=== PATIENT | female | born 1960 | race Asian ===

== ENCOUNTER 2017-03-20 08:41 | Day surgery (SDC) | payer SELFPAY ==
[~2017-03-20] VITALS: Ht 162.6 cm; Wt 72.6 kg
[2017-03-20] VITALS (10 sets, daily range): BP systolic 107–137; BP diastolic 63–87
[~2017-03-20 08:41] MED LIST: CALCIUM600 M1 PO; HYDROCHLOROTH12.5 M2 ORAL; MECLIZINE HCL25 MG ORAL; VITAMIN D1000 UNI1 ORAL
[2017-03-20] MEDS ORDERED: Lidocaine 1% 10mg/ml/Epi 0.005mg/ml 30ml vial INJ ONE (12:22)
[2017-03-20] MEDS ORDERED: Povidone-Iodine 5% opth solution ONE (12:22)
[2017-03-20] MEDS ORDERED: Propofol 200mg/20ml IV ONE ×2 (12:57→15:14)
[2017-03-20] MEDS ORDERED: NS Irrig 1000ml ONE (13:45)
[2017-03-20] MEDS ORDERED: LR 1000ml ONE (13:45)
[2017-03-20] MEDS ORDERED: Sterile Water Irrig 1000ml IRRIG ONE (13:45)
[2017-03-20] MEDS ORDERED: fentaNYL 100 mcg/2 mL IV ONE (13:45)
[2017-03-20] MEDS ORDERED: Midazolam 2mg/2ml Inj ONE (13:45)
--- NOTE | 2017-03-20 13:51 | Anethesia Preoperative Eval ---
Anesthesia Pre-op PMH/ROS General Date of Evaluation: Mar 20, 2017 Time of Evaluation: 13:35 Anesthesiologist: Matthew ASA Score: ASA 2 Mallampati Score Class I : Soft palate, uvula, fauces, pillars visible Class II: Soft palate, uvula, fauces visible Class III: Soft palate, base of uvula visible Class IV: Only hard plate visible Mallampati Classification: Class II Surgeon: Bucky Diagnosis: Bilateral blepharoptosis Surgical Procedure: Bilateral blepharoplasty Anesthesia History: none Family History: no anesthesia problems Allergies: Coded Allergies: HYDROMORPHONE (Verified Allergy, Severe, ITCHING, 03/19/17) Past Medical History Cardiovascular: Reports: HTN - mild, Denies: CAD, NC, valve dz, arrhythmia, other Pulmonary: Denies: asthma, COPD, MARELY, other Gastrointestinal/Genitourinary: Reports: GERD - mild, Denies: CRI, ESRD, other Neurologic/Psychiatric: Denies: dementia, CVA, depression/anxiety, TIA, other Endocrine: Denies: DM, hypothyroidism, steroids, other HEENT: Denies: cataract (L), cataract (R), glaucoma, METLAKATLA (L), METLAKATLA (R), other Hematology/Immune: Denies: anemia, DVT, bleeding disorder, other Musculoskeletal/Integumentary: Denies: OA, RA, DJD, DDD, edema, other PMH Narrative: as above + R breast CA s/p Sx and tamoxifen complete remission PSxH Narrative: lithotripsy, RR mastectomy with l/n dissection Anesthesia Pre-op Phys. Exam Physician Exam Last Vital Signs Date Time Temp Pulse Resp B/P (MAP) Pulse Ox O2 Delivery O2 Flow Rate FiO2 03/20/17 07:09 98.1 67 18 107/75 99 Room Air Constitutional: NAD Neurologic: CN 2-12 intact Cardiovascular: RRR, no M/R/G Respiratory: CTA Gastrointestinal: S/NT/ND Airway Exam Mallampati Score: Class II MO: full Neck: flexible ROM: full Teeth: intact Dentures: no upper, no lower Anesthesia Pre-op A/P Labs see chart Studies Pre-op Studies: EKG - NSR Risk Assessment & Plan Assessment: ASA 2 Plan: MAC Status Change Before Surgery: No Pre-Antibiotics Drug: Ancef 1gr Given Within 1 Hr of Incision: Yes Time Given: 13:55 KEHINDE SAEZ M.D. Mar 20, 2017 13:51
[2017-03-20] MEDS ORDERED: LR 1000ml 1,000 ML IVLG SCH (14:09)
[2017-03-20] MEDS ORDERED: Meperidine 25mg/0.5ml Inj (FOR RIGORS ONLY) IV PRN (14:15)
[2017-03-20] MEDS ORDERED: DiphenhydrAMINE 50mg/ml Inj IVP PRN (14:15)
[2017-03-20] MEDS ORDERED: Bacitracin Oint 15gm Tube TOPIC ONE (14:28)
[2017-03-20] MEDS ORDERED: Maxitrol Opth Oint 3.5gm ONE (15:50)
--- NOTE | 2017-03-20 15:52 | Operative Note - PDOC ---
Operative Note Operative Note Date of Operation/Procedure: Mar 20, 2017 Chief Complaint: Blepharochalasis Pre-op Diagnosis: Blepharochalasis Procedure: Quadrilateral blepharoplasty Post-op Diagnosis: Same Surgeon: Bucky Uniformer: Serge Anesthesia: MAC Specimen: none Complications: none Condition: stable Fluids: None Estimated Blood Loss: minimal Drains: none Packing: None Implant(s) used?: No Indications for Procedure Blepharochalasis Description of Procedure Quadrilateral Blepharoplasty AMBERLY HERMOSILLO M.D. Mar 20, 2017 15:52
--- NOTE | 2017-03-20 15:53 | Pre-Procedure Note/Attestation ---
Pre-Procedure Note/Attestation Complete Prior to Procedure Planned Procedure: bilateral Procedure Narrative: Quadrilateral blepharoplasty Indications for Procedure Pre-Operative Diagnosis: Blepharochalasis Attestation I attest that I discussed the nature of the procedure; its benefits; risks and complications; and alternatives (and the risks and benefits of such alternatives ), prior to the procedure, with the patient (or the patient's legal sales representative raw fibers). I attest that, if there was a reasonable possibility of needing a blood transfusion, the patient (or the patient's legal sales representative raw fibers) was given the [facility] standardized written summary, pursuant to the Lazaro Romina Blood Safety Act ([place] [facility] and Safety Code # 1645, as amended). I attest that I re-evaluated the patient just prior to the surgery and that there has been no change in the patient's H&P, except as documented below: AMBERLY HERMOSILLO M.D. Mar 20, 2017 15:53
--- NOTE | 2017-03-20 15:53 | Immediate Post-Op Evaluation ---
Immediate Post-Op Evalulation Immediate Post-Op Evalulation Procedure: Bilateral blepharoplasty Date of Evaluation: Mar 20, 2017 Time of Evaluation: 15:51 IV Fluids: 1100 Blood Products: none Estimated Blood Loss: min Urinary Output: none Blood Pressure Systolic: 129 Blood Pressure Diastolic: 56 Pulse Rate: 87 Respiratory Rate: 20 O2 Sat by Pulse Oximetry: 99 Temperature (Fahrenheit): 97.6 Pain Score (1-10): 1 Nausea: No Vomiting: No Complications none Patient Status: awake, patent KEHINDE SAEZ M.D. Mar 20, 2017 15:52
--- NOTE | 2017-03-20 15:54 | 48 Hour Post Anesthesia Eval ---
Post Anesthesia Evaluation Procedure: Bilateral blepharoplasty Date of Evaluation: Mar 20, 2017 Time of Evaluation: 16:24 Blood Pressure Systolic: 111 0: 55 Pulse Rate: 73 Respiratory Rate: 20 Temperature (Fahrenheit): 97.8 O2 Sat by Pulse Oximetry: 99 Airway: patent Nausea: No Vomiting: No Pain Intensity: 2 Hydration Status: adequate Cardiopulmonary Status: stable Mental Status/LOC: patient returned to baseline Follow-up Care/Observations: n/a Post-Anesthesia Complications: none Follow-up care needed: ready to discharge KEHINDE SAEZ M.D. Mar 20, 2017 15:54
--- NOTE | 2017-03-23 15:45 | Operative Note - Dictated ---
PREOPERATIVE DIAGNOSIS: Upper and lower eyelid blepharochalasis. POSTOPERATIVE DIAGNOSIS: Upper and lower eyelid blepharochalasis. PROCEDURE: Upper and lower blepharoplasties. SURGEON: Khalif Lawler M.D. SOIL TECHNICIAN: None. ANESTHESIA: Monitored anesthesia care. PROCEDURE IN DETAIL: After consent was obtained, the patient was taken to the operating room and placed supine on the table. Adequate sedation was obtained and the upper eyelid incisions, which have been marked with the patient's in the upright position were extended with a #15 blade. The face was then prepped and draped in the usual sterile surgical fashion and the right upper blepharoplasty was done first by deepening the incisions into the dermis and then excising the skin. A 2 mm strip orbicularis oculi muscle was then excised and hemostasis was obtained. The nasal fat pad was dissected free and very conservatively resected to eliminate the fullness of the nasal portion of the upper eyelid. Incision was closed after meticulous hemostasis was obtained with 6-0 Prolene suture in a running subcuticular and then interrupted fashion. The identical procedure was performed on the contralateral eyelid with exactly the same findings and results. The left lower eyelid blepharoplasty was next done by first placing a 3-0 Vicryl retracting suture in the proximal conjunctiva and then making a conjunctival incision with a cautery. Preseptal dissection was carried down to the orbital rim and the arcus marginalis was released using a Jose elevator. Nasal and middle fat pockets were dissected free and ample fat was found and mobilized in order to drape over the orbital bone. The fat pockets were secured into place inferior to the orbital rim in the periosteum using 5-0 Vicryl suture material. Incision was then closed after meticulous hemostasis was obtained with 6-0 plain gut suture. The same procedure was performed on the contralateral side with identical findings and results. Steri-Strips were applied to the end of the upper eyelids, subcuticular sutures, and the patient was taken to recovery in excellent condition postoperatively. Khalif Lawler DR: Dereje JOB#: [id number] CC:
== END 2017-03-20 17:30 | disposition home or self-care (01) ==
LOC: SUR 08:41 → EEVIPCON 14:00 → SUR 17:30
DX: H02.31 Blepharochalasis right upper eyelid (principal); H02.35 Blepharochalasis left lower eyelid; H02.34 Blepharochalasis left upper eyelid; H02.32 Blepharochalasis right lower eyelid
CPT/HCPCS: 67909; J0690; J2250; J2704; J3010; J7120; 94003; 94150